=== PATIENT | female | born 1950 | race Caucasian/White ===

== ENCOUNTER → 2019-05-06 | Outpatient (CLI) | payer MEDICARE, OTHER ==
[~2019-05-06] VITALS: Ht 157.5 cm; Wt 70.8 kg
[~2019-05-06] MED LIST: ALENDRONATE SOD35 MG PO; AMARYL2 M1 PO; CARVEDILOL25 MG PO; FLONASE 0.05%50 MCG; IPRAT-ALBUT 0.5-3 ML; JANUVIA 50 MG T50 MG PO; LISINOPRIL-HCT1 EAC2 PO; NORVASC 2.5 MG2.5 M1 PO; PROAIR HFA8.5 GM; SINUS RELIEF14.7 M1; VIBRAMYCIN 100100 M2 PO; WELLBUTRIN SR100 MG PO; ZOCOR 20 MG TAB20 M1 PO
[2019-05-06 11:45] VITALS: BP 128/74
[2019-05-06 11:47] LABS: HEMATOCRIT 40.5 % (37.0-47.0); HEMOGLOBIN 13.4 gm/dL (12.0-15.0); MCHC 33.2 g/dL (28.0-37.0); MCV 87.3 fL (80.0-100.0); MPV 7.8 fl. (7.2-11.1); PLATELET COUNT* 231 thou/uL (150-400); RBC 4.64 mil/uL (4.20-5.00); RDW-CV 13.9 % (10.5-14.5); WBC 8.8 thou/uL (4.0-11.0)
[2019-05-06 11:55] LABS: CALCIUM 8.9 mg/dL (8.5-10.1); POTASSIUM 4.2 mmol/L (3.5-5.1)
[2019-05-06 11:58] LABS: APTT 25.4 Seconds (25.0-31.3); PROTIME 10.6 Seconds (9.20-11.50)
[2019-05-06 13:09] LABS: ABSOLUTE EOSINOPHILS 0.1 thou/uL (0.0-0.7); ABSOLUTE LYMPHOCYTES 0.9 thou/uL (0.8-5.3); ABSOLUTE MONOCYTES 0.4 thou/uL (0.0-1.2); ABSOLUTE NEUTROPHILS 7.4 thou/uL (1.6-8.1); PLATELET ESTIMATE ADEQUATE
--- NOTE | 2019-05-06 13:41 | 2DMMODE ---
[place] [address] 2 D/M-MODE ECHOCARDIOGRAM Name: MATT JEREZ Room: [facility]#: [id number] Admission: 05/06/19 Attend Phys: Yacni Zimmer, Discharge: Date of : 50 Date of Service: 05/06/19 1341 Report #: [id number] THIS REPORT FOR: //name// APPROVED REPORT Study performed: 05/06/2019 10:46:14 EXAM: Comprehensive 2D, Doppler, and color-flow Echocardiogram Patient Location: Out-Patient BSA: 1.72 HR: 81 bpm BP: 116/56 mmHg Other Information Study Quality: Fair Indications Pre-Chemo 2D Dimensions IVSd: 11.58 (7-11mm) LVOT Diam: 20.52 (18-24mm) LVDd: 38.57 mm PWd: 10.47 (7-11mm) Ascending Ao: 32.37 (22-36mm) LVDs: 20.36 (25-40mm) Aortic Root: 22.68 mm Volumes Left Atrial Volume (Systole) LA ESV Index: 8.90 mL/m2 Aortic Valve AoV Peak Rubio.: 1.19 m/s AO Peak Gr.: 5.62 mmHg LVOT Max P.79 mmHg AO Mean Gr.: 3.63 mmHg LVOT Mean P.84 mmHg LVOT Max V: 1.20 m/s AO V2 VTI: 25.57 cm LVOT Mean V: 0.77 m/s DESHAWN (VTI): 3.58 cm2 LVOT V1 VTI: 27.69 cm Mitral Valve E/A Ratio: 0.78 MV Decel. Time: 219.63 ms MV E Max Rubio.: 0.79 m/s MV PHT: 63.69 ms MVA (PHT): 3.45 cm2 [place] [address] 2 D/M-MODE ECHOCARDIOGRAM Name: MATT JEREZ Room: [facility]#: [id number] Admission: 05/06/19 Attend Phys: Yanci Zimmer, Discharge: Date of : 50 Date of Service: 05/06/19 1341 Report #: [id number] TDI E/Lateral E': 7.90 E/Medial E': 8.78 Medial E' Rubio.: 0.09 m/s Lateral E' Rubio.: 0.10 m/s Pulmonary Valve PV Peak Rubio.: 0.99 m/s PV Peak Gr.: 3.90 mmHg Tricuspid Valve RAP Estimate: 5.00 mmHg TR Peak Gr.: 17.07 mmHg RVSP: 22.07 mmHg PA Pressure: 22.07 mmHg Left Ventricle The left ventricle is normal size. There is normal LV segmental wall motion. There is normal left ventricular wall thickness. Left ventricular systolic function is normal. The left ventricular ejection fraction is within the normal range. LVEF is 60-65%. Grade I - abnormal relaxation pattern. Right Ventricle The right ventricle is normal size. The right ventricular systolic function is normal. Atria The left atrium size is normal. The right atrium size is normal. Aortic Valve The aortic valve is normal in structure. No aortic regurgitation is present. There is no aortic valvular stenosis. Mitral Valve The mitral valve is normal in structure. There is no mitral valve regurgitation noted. No evidence of mitral valve stenosis. Tricuspid Valve The tricuspid valve is normal in structure. Mild tricuspid regurgitation. Pulmonic Valve The pulmonary valve is normal in structure. There is no pulmonic valvular regurgitation. [place] [address] 2 D/M-MODE ECHOCARDIOGRAM Name: MATT JEREZ Room: [facility]#: [id number] Admission: 05/06/19 Attend Phys: Yanci Zimmer, Discharge: Date of : 50 Date of Service: 05/06/19 1341 Report #: [id number] The aortic root is normal in size. IVC is normal in size and collapses >50% with inspiration. Pericardium Small pericardial effusion <Conclusion> The left ventricle is normal size. There is normal left ventricular wall thickness. Left ventricular systolic function is normal. The left ventricular ejection fraction is within the normal range. LVEF is 60-65%. Grade I - abnormal relaxation pattern. The left atrium size is normal. The aortic valve is normal in structure. The mitral valve is normal in structure. The tricuspid valve is normal in structure. Mild tricuspid regurgitation. IVC is normal in size and collapses >50% with inspiration. Small pericardial effusion There is normal LV segmental wall motion. <ELECTRONICALLY SIGNED> By: Wesley Nicolas MD, FACC 05/06/19 1341 134 134 Wesley Nicolas MD, FACC /INF
--- NOTE | 2019-05-12 17:11 | PATH ---
[address] [address] PATHOLOGY RPT PROCEDURE Name: MATT ARNOLD Room: [facility].#: [id number] Admission: 05/06/19 Date of : 50 Discharge: Report #: [id number] Path Case #: [id number] Accession Number: [id number] . 01 Material submitted: . PART A: bone - BONE MARROW BIOPSY PART B: bone - BONE MARROW CLOT PART C: bone - BONE MARROW ASPIRATE SLIDES PART D: bone - PERIPHERAL BLOOD SMEARS PART E: bone - BONE MARROW FLOW . 01 Clinician provided ICD-10: C83.12 . 01 Clinical history: . 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 This is a staging marrow. . 02 Diagnosis: Bone marrow aspirate, biopsy, cell clot and peripheral blood: - Peripheral blood with no diagnostic abnormalities. - Normocellular to mildly hypercellular bone marrow with trilineage hematopoiesis, mild (no significant) dyspoiesis and no evidence of lymphoma or acute leukemia. (See comment) . . Special studies report received from [facility], [address] [place] [address], [address], [place], [address], on case [id number], labeled with their number [id number], dated 05/08/2019. . Flow Cytometry: Hematologic Neoplasia Assessment . 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 Indication for Study Evaluation for mantle cell lymphoma . Specimen Bone Marrow Aspirate . Viability 88% (7AAD exclusion) . Interpretation Bone Marrow Aspirate: - No evidence for abnormal myeloid maturation or an increased blast population. - No evidence for a B-cell or T-[place] [address] PATHOLOGY RPT PROCEDURE Name: EDWIN ARNOLDCYNTHIA Cartagena Room: [facility]#: [id number] Admission: 05/06/19 Date of : 50 Discharge: Report #: [id number] Path Case #: [id number] . Comments Correlation with available clinical, laboratory, and morphologic data is recommended. . Populations Analyzed Myeloid Blasts: 0.5% No significant immunophenotypic abnormalities Lymphocytes: 2% B-cells: 0.3%, polytypic/polyclonal sIg light chain pattern T-cells: no significant abnormalities of the markers tested CD4+ T-cells: 1.1% (including 0.2% CD57+ cells) CD8+ T-cells: 0.5% (including 0.1% CD57+ cells) CD4:CD8: 2.2 NK cells: 0.5% Neutrophilic Cells: 92% No significant abnormalities of the markers tested Monocytic Cells: 2% No significant abnormalities of the markers tested Eosinophils: 2% No relative increase Basophils: 0.2% No relative increase Plasma Cells: 0.1% Few detected; no overt abnormalities of the surface markers tested (plasma cells are typically underrepresented by flow cytometry; cytoplasmic light chains were not assessed) Hematogones: 0.3% Normal B-cell precursors CD45 Negative 1% No significant reactivity with the markers Events/Debris: tested (may represent unlysed red blood cells, erythroid precursors, platelets, debris, etc.) (erythroid precursors may be underrepresented due to sample lysis/processing) . . Morphologic Evaluation A slide was reviewed for quality engineer purposes only. . Reagent(s) Used CD2, CD3, CD4, CD5, CD7, CD8, CD10, CD11b, CD13, CD14, CD16, CD19, CD20, CD33, CD34, CD38, CD45, CD56, CD57, CD64, CD117, HLA-DR, kappa, lambda . at [facility]. Glenys Gomez MD Hematopathologist . . Intended Use Flow cytometry is optimally used to immunophenotypically characterize abnormal populations when they are detected. Negative flow cytometry results do not exclude lymphoma or neoplasia[place] [address] PATHOLOGY RPT PROCEDURE Name: MATT ARNOLD Room: [facility]#: [id number] Admission: 05/06/19 Date of : 50 Discharge: Report #: [id number] Path Case #: [id number] cytometry results may occur in, but are not limited to, the following: neoplastic cells in Hodgkin lymphoma are not typically adequately represented by routine clinical flow cytometry; neoplastic cells may be lost or inadequately represented due to degeneration, sample processing, sampling artifact, or patchy involvement; plasma cells are typically underrepresented by flow cytometry; immature cells/blasts may be underrepresented due to hemodilution; myeloproliferative disorders and low grade myelodysplasia may not have immunophenotypic abnormalities or increased blasts. Correlation with all available clinical, laboratory, and morphologic data is always necessary to assess for the possibility of false negative flow cytometry results and to establish a diagnosis. Each marker in this analysis was used to assess for potential antigenic abnormalities or to evaluate detected abnormalities. . Disclaimer(s) This test was performed at [facility]. at [address] [facility] [address], [place], [address] - Roping Machine Tender: Ranjit Marino MD. [facility] is a business unit of [employer], a wholly-owned subsidiary of [employer]. . Any image or images that accompany this report are community representative images only and should not be used to render a diagnosis. . This test was developed and its performance characteristics determined by [facility]. It has not been cleared or approved by the Food and Drug Administration (FDA). The FDA has determined that such clearance or approval is not necessary. . For inquiries, the physician may contact Lab: [phone] . A complete copy of the report is on file. . Professional services performed by [facility] ([employer]). at [address], [place] [address]. Technical services performed by [facility]. at [address], [place] [address]. . (CLW:robert 05/11/2019) . . [facility] 05/12/2019 1311 Local . 02 Comment: Overall, the bone marrow is normocellular for the patient's age with trilineage hematopoiesis, mild (no significant) dyspoiesis and no evidence of the patient's previously diagnosed mantle cell lymphoma (diagnosed [facility] [address] [place] [address] PATHOLOGY RPT PROCEDURE Name: SOLITARIOEDWINMATT Osiel Room: [facility]#: [id number] Admission: 05/06/19 Date of : 50 Discharge: Report #: [id number] Path Case #: [id number] elsewhere) or acute leukemia. The dyspoiesis is mild and does not meet the morphologic criteria for myelodysplasia. Correlation with clinical history, additional laboratory data and cytogenetics is recommended. (CLW/db; 05/12/2019) . 02 Electronically signed: . Leslie Fontanez MD, Pathologist NPI- [id number] . 01 Gross description: . A. Received in formalin labeled "Matt Arnold, core," is a single needle core of pozo bone measuring 0.8 cm in length and 0.2 cm in diameter. The specimen is submitted entirely in cassette A1, following decalcification. . B. Received in formalin labeled "Jatindersieck Matt, clot," is an aggregate of dark pozo blood clot measuring 2.8 x 1.4 x 1.4 cm. The specimen is filtered and entirely submitted in cassettes B1-B3. (TSD; 05/06/2019) TOB/TOB 05/06/2019 [facility] . 02 Microscopic: . CBC Data (05/06/19): WBC 8,500 /uL, RBC 4.63, hemoglobin 13.5 g/dL, hematocrit 40.3%, MCV 87.0 fL, MCH 29.0 pg, MCHC 33.4 g/dL, RDW 13.9%, and platelet count 237,000 /uL. White blood cell differential: segs 84%, lymphs 10%, monos 5%, and eos 1%. . Peripheral Blood Smear: Cytomorphological examination of the Alonzo's stained peripheral blood smear confirms the provided data. Red blood cells are normocytic and are without significant anisopoikilocytosis. White blood cells are predominantly segmented neutrophils and are without significant dyspoiesis or significant left shift. Lymphocytes are predominantly small, round, and mature appearing with condensed chromatin and scant cytoplasm with admixed large granular lymphocytes. On scanning, no markedly atypical lymphoid cells are seen. Monocytes are mature. Platelets are adequate in number and mainly normal in morphology with rare larger platelets noted. . Aspirate Smears: Cytomorphological examination of the Alonzo's stained aspirate smears shows spicules present. The overall cellularity is approximately 50%. The myeloid to erythroid ratio is 2:1. Full myeloid maturation is identified and is without significant dyspoiesis. Erythroid maturation is mildly dyserythropoietic with irregular nuclear contours, binucleate forms and a mild left shift in maturation. In a 500 cell differential, there are 1% blasts (no Cary rods are seen), 61% more differentiated myeloids, 28% erythroid precursors, 9% lymphocytes and 1% plasma cells. Megakaryocytes are proportional in number and both normal and abnormal in morphology with variable sizes and nuclear abnormalities. No lymphoid [address] [address] PATHOLOGY RPT PROCEDURE Name: MATT ARNOLD Room: [facility]#: [id number] Admission: 05/06/19 Date of : 50 Discharge: Report #: [id number] Path Case #: [id number] aggregates or markedly atypical lymphoid cells are seen. Plasma cells are without atypia. Iron stain of the aspirate smear shows 2/4+ iron positivity with spicules present. No ringed sideroblasts are identified. . Core Biopsy and Cell Clot: The decalcified bone marrow core biopsy is adequate. The bone marrow is normocellular to mildly hypercellular with an overall cellularity of approximately 50%. The myeloid to erythroid ratio is 2:1. Myeloid maturation is without significant dyspoiesis. Erythroid maturation is mildly dyserythropoietic. Megakaryocytes are normal in number and both normal and abnormal in morphology. No lymphoid aggregates or markedly atypical lymphoid cells are seen. Bony trabeculae and blood vessels are unremarkable. The cell clot has rare spicules present that are similar in cellularity and differential morphology as previously described. . Properly controlled special stains are performed. . Block A1: Iron - 2/4+ iron positivity; Reticulin - No significant reticulin fibrosis. . Iron (blocks B1, B2 and B3) - 2/4+ iron positivity with spicules present. . Due to the history of lymphoma, to confirm the flow cytometry findings and to identify cells in a tissue architecture context, properly controlled immunohistochemical stains are performed. . Block A1: PAX5 - Only rare scattered small B-cells; CD79a - Only rare scattered small B-cells; CD3 - Highlights admixed T-cells; Cyclin D1 - Essentially non-reactive. . Block B3: PAX5 - Rare scattered small B-cells; CD79a - Rare scattered small B-cells; CD3 - Occasional scattered T-cells; Cyclin D1 - Essentially non-reactive. . Flow Cytometry: Flow cytometric immunophenotypic analysis was performed at [facility]. The diagnosis is "no evidence for an abnormal myeloid maturation or an increased blast population, no evidence for a B-cell or T-cell lymphoproliferative disorder." There are 0.5% myeloid blasts. There are 2% lymphocytes. Of the lymphocytes, there are 0.3% polyclonal B-cells. T-cells have a CD4/CD8 ratio of 2.2 and no aberrant T-cell antigen expression. Please see separate flow cytometry report from [facility] ([id number]). [place] [address] PATHOLOGY RPT PROCEDURE Name: MATT ARNOLD Room: [facility]#: [id number] Admission: 05/06/19 Date of : 50 Discharge: Report #: [id number] Path Case #: [id number] Cytogenetics: Cytogenetic chromosomal analysis is pending at [facility] ([id number]). . 02 Pathologist provided ICD-10: C83.19 . 02 CPT . 653441, 976879, 384378, 416810, 610831, 178469, 581897, 961916, 585904, 817345, 173149, H47452, W46685 Specimen Comment: A courtesy copy of this report has been sent to [phone] Specimen Comment: [phone], Specimen Comment: Report sent to ,DR BUTLER / DR FRAZIER Performed at: [address], [place], [place] [address] MD Urbano Lima MD Phone: [phone] Performed at: [address] [id number] MD Eugene Jeff MD Phone: [phone]
== END | disposition home or self-care (01) ==
LOC: M.INT 05-05 08:00 → M.CRD 05-05 08:00 → M.INT 11:00
PROVIDERS: Radiology Diagnostic Radiology
DX: D70.4 Cyclic neutropenia (principal); D75.89 Other specified diseases of blood and blood-forming organs; I34.1 Nonrheumatic mitral (valve) prolapse; Z98.890 Other specified postprocedural states; Z90.710 Acquired absence of both cervix and uterus; Z87.891 Personal history of nicotine dependence; Z79.899 Other long term (current) drug therapy; Z79.01 Long term (current) use of anticoagulants

== ENCOUNTER 2019-05-28 11:02 | Emergency (ER) | payer MEDICARE, OTHER ==
[~2019-05-28] VITALS: Ht 157.5 cm; Wt 71.2 kg
[2019-05-28 11:32] LABS: HEMATOCRIT 36.8 % (37.0-47.0); HEMOGLOBIN 12.5 gm/dL (12.0-15.0); MCH 29.1 pg (26.0-34.0); MCV 85.6 fL (80.0-100.0); MPV 8.5 fl. (7.2-11.1); NUCLEATED RBCS 0 /100WBC; PLATELET COUNT* 174 thou/uL (150-400); RDW-CV 14.6 % (10.5-14.5); WBC 9.1 thou/uL (4.0-11.0)
[2019-05-28 11:39] LABS: CALCIUM 8.9 mg/dL (8.5-10.1); POTASSIUM 4.2 mmol/L (3.5-5.1)
[2019-05-28 11:50] LABS: ALBUMIN 2.4 g/dL (3.4-5.0); TOTAL BILIRUBIN 0.5 mg/dL (<0.1-1.0); TOTAL PROTEIN 6.7 g/dL (6.4-8.2)
[2019-05-28 11:56] LABS: ABSOLUTE EOSINOPHILS 0.1 thou/uL (0.0-0.7); ABSOLUTE LYMPHOCYTES 0.3 thou/uL (0.8-5.3); ABSOLUTE MONOCYTES 0.3 thou/uL (0.0-1.2); ABSOLUTE NEUTROPHILS 8.5 thou/uL (1.6-8.1); PLATELET ESTIMATE ADEQUATE
[2019-05-28] MEDS ORDERED: NORCO 5-325 TA1 EAC1 PO (12:22)
[2019-05-28 12:37] VITALS: BP 109/50
--- NOTE | 2019-05-28 16:11 | EKG ---
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
== END 2019-05-28 12:39 | disposition home or self-care (01) ==
LOC: M.ERS 11:02
PROVIDERS: Nurse Practitioner Psychiatric/Mental Health
DX: M79.671 Pain in right foot (principal); M79.672 Pain in left foot; R60.0 Localized edema; Z90.710 Acquired absence of both cervix and uterus

== ENCOUNTER → 2021-06-05 | Outpatient (CLI) | payer MEDICARE, OTHER ==
[~2021-06-05] MED LIST changes: +NORCO 5-325 TA1 EAC1 PO
== END ==
LOC: M.PC 09:23
PROVIDERS: ATTEND Physical Medicine & Rehabilitation
DX: M47.816 Spondylosis without myelopathy or radiculopathy, lumbar region (principal); M51.26 Other intervertebral disc displacement, lumbar region; M51.27 Other intervertebral disc displacement, lumbosacral region; M48.07 Spinal stenosis, lumbosacral region